=== PATIENT | female | born 2005 | race African-American/Black ===

== ENCOUNTER 2023-01-17 12:09 | Emergency (ER) | payer SELFPAY ==
[~2023-01-17] VITALS: Ht 157.5 cm; Wt 52.7 kg
[2023-01-17 12:10] VITALS: BP 141/68; PULSE 84; RESP 16; TEMP 98.3
[2023-01-17 13:02] LABS: APPEARANCE,URINE TURBID (CLEAR); COLOR,URINE DARK ORANGE (YELLOW); GLUCOSE, URINE (UA) NEGATIVE (NEGATIVE); KETONES,URINE NEGATIVE (NEGATIVE); LEUKOCYTE ESTERASE ,URINE LARGE (NEGATIVE); NITRATE,URINE POSITIVE (NEGATIVE); OCCULT BLOOD,URINE MODERATE (NEGATIVE); PROTEIN,URINE 300-600,SEE CONFIRM mg/dL (NEGATIVE); SPECIFIC GRAVITIY, URINE 1.018 (1.003-1.030)
[2023-01-17 13:10] LABS: BILIRUBIN,URINE SMALL (NEGATIVE)
[2023-01-17 13:12] LABS: SULFOSALICYLIC ACID,URINE 3+ (Negative); WBC,URINE Full Field /HPF (0-5)
[2023-01-17 13:13] LABS: BACTERIA,URINE Many /HPF (None Seen)
[2023-01-17] MEDS ORDERED: PHEN-674 PO (14:08)
[2023-01-17] MEDS ORDERED: NITR-75 PO (14:08)
== END 2023-01-17 14:24 | disposition home or self-care (01) ==
LOC: EMS 12:39
DX: N39.0 Urinary tract infection, site not specified (principal)
CPT/HCPCS: 81001; 81002; 87086; 87186; 99283

== ENCOUNTER 2024-08-15 09:13 | Emergency (ER) | payer MEDICAID ==
[~2024-08-15] VITALS: Ht 165.1 cm; Wt 59.1 kg
[~2024-08-15 09:13] MED LIST: NITR-104 PO; PHEN-674 PO
[2024-08-15 09:24] VITALS: TEMP 98.6
[2024-08-15] MEDS: IBUPROFEN 600 MG TABLET PO ONE (10:52)
[2024-08-15] MEDS ORDERED: IBUP-1492 PO (12:10)
[2024-08-15 12:29] VITALS: BP 129/91; PULSE 82; RESP 18; O2SAT 99
== END 2024-08-15 12:30 | disposition home or self-care (01) ==
LOC: EMS 09:24
DX: S29.012A Strain of muscle and tendon of back wall of thorax, initial encounter (principal); R07.9 Chest pain, unspecified; Z79.899 Other long term (current) drug therapy; V89.2XXA Person injured in unspecified motor-vehicle accident, traffic, initial encounter; Y93.89 Activity, other specified; Y92.488 Other paved roadways as the place of occurrence of the external cause; Y99.8 Other external cause status
CPT/HCPCS: 71045; 99283